=== PATIENT | male | born 1990 | race Caucasian/White ===

== ENCOUNTER 2022-01-01 08:49 | Emergency (ER) | payer SELFPAY ==
[2022-01-01 08:53] VITALS: BP 102/67; PULSE 90; RESP 17; TEMP 36.8; O2SAT 100; BMI 21.9
--- NOTE | 2022-01-01 09:11 | ED_ITS ---
HPI - General Adult General Chief complaint: Dental/Oral Stated complaint: DENTAL ISSUE Time Seen by Provider: 01/01/22 09:09 Source: patient Mode of arrival: ambulatory Limitations: no limitations History of Present Illness HPI narrative: Patient is a 31 year old assigned male at with a history of poor dentition presenting to the emergency department today with dental pain. Patient states that he got braces put on at 13 years old and never got them off. Patient states that he has gotten multiple quotes from dentists and they are all very expensive but he needs all of his teeth pulled out. Patient states that his lower right tooth has been bothering him lately. Patient denies any dizziness, lightheadedness, abdominal pain, nausea, vomiting, fever, chills, blurry vision, double vision, loss of vision, chest pain, difficulty breathing, shortness of breath, back pain, night sweats, pain with urination, increased urinary frequency, increased urinary urgency, blood in his urine or stool, syncope or a near syncopal episode, recent trauma or falls, bowel incontinence, bladder incontinence, bowel retention, bladder retention, or any other complaints at this time. Onset (ago): year(s) Location: mouth Radiation: non-radiation Severity: mild Severity scale (1-10): 2 Quality: aching and dull Pain Consistency: constant Relieving factors: none Exacerbating factors: none Associated symptoms: denies other symptoms Treatments prior to arrival: none Related Data Previous Rx's Medication Instructions Recorded penicillin V potassium 500 mg 500 mg PO BID 10 days #20 tabs 01/01/22 tablet Allergies Allergy/AdvReac Type Severity Reaction Status Date / Time No Known Allergies Allergy Unverified 10/29/19 15:54 [No Known Allergies*] Review of Systems Constitutional: Constitutional: Reports no additional constitutional complaints, Denies chills, Denies fever(s) and Denies night sweats Eyes: Eyes: Reports no additional eye complaints, Denies blurry vision, Denies change in vision, Denies diplopia, Denies eye discharge, Denies loss of vision and Denies eye pain ENT: Denies dizziness Comments: dental pain Cardiovascular: Cardiovascular: Reports no additional cardiovascular complaints, Denies chest pain, Denies lightheadedness, Denies Loss of Consciousness and Denies dyspnea Respiratory: Respiratory: Reports no additional respiratory complaints and Denies dyspnea Gastrointestinal: Gastrointestinal: Reports no additional gastrointestinal complaints, Denies abdominal pain, Denies melena, Denies hematochezia, Denies change in bowel habits and Denies change in stool character Genitourinary: Genitourinary: Reports no additional male genitourinary complaints, Denies hematuria, Denies oliguria, Denies difficulty urinating, Denies dysuria, Denies urinary frequency, Denies urinary hesitancy, Denies urinary incontinence and Denies urinary urgency Musculoskeletal: Musculoskeletal: Reports no additional musculoskeletal complaints, Denies numbness and Denies tingling Neurologic: Denies dizziness, Denies loss of vision, Denies numbness and Denies tingling Psychiatric: Psychiatric: Reports no additional psychiatric complaints Endocrine: Endocrine: Reports no additional endocrine complaints Hematologic/Lymphatic: Hematologic/Lymphatic: Reports no additional hematologic/lymphatic complaints Allergic/Immunologic: Allergic/Immunologic: Reports no additional allergic/immunologic complaints [facility] Past Medical History Attestation statement: The following information was validated with the patient. Source: old records reviewed Social History Social History Advance Directives: No Advance Directives Information Provided: No Physical Exam ED Vital Signs: Vital Signs - 24 hr 01/01/22 08:53 Temperature 98.2 F Pulse Rate 90 Respiratory Rate 17 Blood Pressure 102/67 Pulse Oximetry 100 Oxygen Delivery Method Room Air BMI result Body Mass Index 21.9 Const General: cooperative, no acute distress, alert and awake Nutritional Appearance: well nourished Orientation/consciousness: patient oriented x3 Limitations: no limitations [facility] Head: Yes normal to inspection and Yes atraumatic Ears: hearing grossly normal bilaterally and external ears normal General nose exam: Normal external nose present, no nasal discharge noted and no epistaxis Face and sinus: Yes normal facial exam, No abrasion and No laceration Mouth: Normal oral and palatal mucosa present, no drooling and no muffled voice Teeth and gingiva: poor dentition (multiple teeth with deep cavities where the braces hardware used to be) and other (remaining braces hardware present on multiple teeth) Eyes General: appearance normal, both eyes and all related structures Periorbital: periorbital findings normal Eyelids: Yes eyelids normal Conjunctivae: conjunctivae normal Pupils: Equal, round and reactive pupils present EOM: EOMs intact bilaterally Neck Neck: Yes normal visual inspection, Yes full ROM and Yes no lymphadenopathy Chest Chest palpation & inspection: normal inspection of the chest Resp Effort & Inspection: normal respiratory effort and able to speak in complete sentences Auscultation: clear to auscultation bilaterally Cardio Rate: regular rate Rhythm: regular rhythm GI Inspection: Yes normal to inspection Neuro General: patient oriented x3 and moves all extremities Cranial nerves: Yes Equal, round and reactive pupils present Cognition (Neuro): normal cognition Motor exam (neuro): 5/5 motor strength present throughout Sensory Exam: Normal double simultaneous stimulation for sensation Coordination: [id number] test normal Extrem General: Yes normal to inspection, Yes full ROM and Yes capillary refill normal Psych Appearance: grossly normal Mental Status: mental status grossly normal Affect: normal affect Attitude: cooperative Thought process: Normal thought process present Thought content: Normal thought content present Insight: Good insight present (Psych) Medical Decision Making MDM Narrative Medical decision making narrative: Patient is a 31 year old assigned male at with a history of poor dentition presenting to the emergency department today with right lower sided dental pain. Patient's physical exam showed extensive poor dentition with multiple areas of large cavities, presumably where braces hardware used to be and multiple teeth with remaining braces brackets. I explained my physical exam findings to the patient. I answered all questions asked by the patient. I stressed the importance of the patient taking his medication as prescribed. I stressed the importance of the patient following up with his primary care provider and a dentist. I stressed the importance of the patient returning to the emergency department immediately if his symptoms were to worsen or if he were to develop any dizziness, shortness of breath, difficulty breathing, chest pain, blurry vision, loss of vision, nausea, vomiting, abdominal pain, fever, chills, back pain, or any other complaints. Patient verbalized agreement and understanding with this treatment plan and discharge. Medical Records Medical records reviewed: Yes I reviewed the patient's medical records. Discharge Plan Discharge Clinical Impression: Dental abscess Patient Disposition: Home, Self-Care Additional Instructions: Follow up with your primary care provider. Return to the emergency department immediately if your symptoms worsen or if you develop any dizziness, shortness of breath, difficulty breathing, chest pain, blurry vision, loss of vision, nausea, vomiting, abdominal pain, fever, chills, back pain, or any other complaints. Call or visit any of the clinics below to establish with a dentist: [facility] [address] [place] [address] [facility] [address] [facility], [address] [address] [place] [address] [facility] [address] [place] [id number] [facility] [address] [place] [address] [place] [address] [place] [address] Prescriptions: New penicillin V potassium 500 mg tablet 500 mg PO BID 10 Days Qty: 20 0RF Referrals: Eric Aguirre MD [Primary Care Provider] - Stand Alone Forms: Work/School Release Interventions: ED Discharge Assessment Last Done: 01/01/22 09:24 Discharge Date/Time: 01/01/22 09:25 Print Language: Kuwaiti
== END 2022-01-01 09:25 | disposition home or self-care (01) ==
PROVIDERS: Emergency Provider Emergency Medicine; PCP Internal Medicine
DX: K04.7 Periapical abscess without sinus (principal); K08.89 Other specified disorders of teeth and supporting structures; K02.9 Dental caries, unspecified
CPT/HCPCS: 99282; 99283

== ENCOUNTER 2022-03-24 08:01 | Emergency (ER) | payer SELFPAY ==
[2022-03-24 08:09] VITALS: BP 128/82; PULSE 99; RESP 16; TEMP 37; O2SAT 99; BMI 22.9
[2022-03-24 08:59] VITALS: TEMP 36.9
--- NOTE | 2022-03-24 09:05 | ED_ITS ---
HPI - Dental/Oral General Chief complaint: Dental/Oral Stated complaint: possible tooth infection Time Seen by Provider: 03/24/22 08:43 Source: patient Mode of arrival: ambulatory History of Present Illness HPI Narrative: 31-year-old male presents with poor dentition and complaints of right lower tooth pain after 1 of his braces cracked the molar he has had subsequent swelling to the right lower jaw area but denies any difficulty with swallowing or breathing and denies any fevers or chills. Related Data Previous Rx's Medication Instructions Recorded penicillin V potassium 500 mg 500 mg PO BID 10 days #20 tabs 01/01/22 tablet amoxicillin 875 mg-potassium 1 tab PO Q12H 5 days #10 tabs 03/24/22 clavulanate 125 mg tablet Allergies Allergy/AdvReac Type Severity Reaction Status Date / Time No Known Allergies Allergy Verified 03/24/22 08:11 [No Known Allergies*] Review of Systems Review of Systems: Pertinent positives and negatives as stated in HPI. [facility] Past Medical History Source: nursing notes reviewed Social History Social History Advance Directives: No Advance Directives Information Provided: No Physical Exam Vital Signs: Vital Signs: Last Vital Signs Temp 98.5 F 03/24/22 08:59 Pulse 99 03/24/22 08:09 Resp 16 03/24/22 08:09 BP 128/82 03/24/22 08:09 Pulse Ox 99 03/24/22 08:09 O2 Del Method 03/24/22 08:09 BMI result Body Mass Index 22.9 VITAL SIGNS: Reviewed. GENERAL: Well developed, well nourished, in no acute distress. HEAD: Normocephalic/atraumatic EYES: PERRLA, EOMI OROPHARYNX: Multiple dental caries with cracked teeth, no appreciable gingival swelling but swelling noted along the right lower jaw without fluctuance LUNGS: Normal breath sounds. No adventitious sounds or accessory muscle use. SpO2<99> CARDIOVASCULAR: Regular rate and rhythm without noted murmurs ABDOMEN: Soft, non-tender, non-distended with bowel sounds. NEUROLOGIC: Alert and oriented x 4. Strength and sensation to light touch were grossly intact x 4. Medical Decision Making Medical Decision Making MDM Narrative: Dental infection, combination analgesics and initial antibiotics provided. Differential Diagnosis Differential Diagnoses: The differential diagnosis associated with the presentation includes Please see the discussion above External Record Review External record reviewed: Outpatient record and Prior outpatient labs Discharge Plan Discharge Clinical Impression: Toothache, Dental abscess, Dental caries Patient Disposition: Home, Self-Care Instructions: Dental Abscess (ED), Toothache (ED) Additional Instructions: 1. Complete the entire course of antibiotics as ordered. 2. Recommend [id number] Tylenol/ibuprofen as needed for pain control. May additionally use ice to unexposed skin for 5-10 minutes, 3 to 4 times a day. 3. You should follow-up with a dentist at your earliest convenience. Return to the ER for any worsening symptoms. Prescriptions: New amoxicillin-pot clavulanate 875-125 mg tablet 1 tab PO Q12H 5 Days Qty: 10 0RF No Action penicillin V potassium 500 mg tablet 500 mg PO BID 10 Days Qty: 20 0RF
[2022-03-24] MEDS: Ibuprofen 400 MG TABLET PO (09:18)
[2022-03-24] MEDS: Amoxicillin/Potassium Clav 875 MG TABLET PO (09:18)
== END 2022-03-24 09:23 | disposition home or self-care (01) ==
PROVIDERS: Emergency Provider Student in an Organized Health Care Education/Training Program
DX: K04.7 Periapical abscess without sinus (principal); K02.9 Dental caries, unspecified; K08.89 Other specified disorders of teeth and supporting structures
CPT/HCPCS: 99283; 99284

== ENCOUNTER 2022-06-12 09:40 | Emergency (ER) | payer SELFPAY ==
[2022-06-12 09:53] VITALS: BP 138/78; PULSE 80; RESP 18; TEMP 37.2; O2SAT 100; BMI 28.3
--- NOTE | 2022-06-12 11:34 | ED.DENTAL ---
HPI - Dental/Oral General Chief complaint: Dental/Oral Stated complaint: Dental pain Time Seen by Provider: 06/12/22 11:19 Source: patient Mode of arrival: ambulatory History of Present Illness HPI Narrative: 31-year-old male with no significant past medical history presenting to the ED complaining lower dental pain & diffuse dental caries x years. Patient admits he had braces placed when he was 12 years old, however left his house and has never had them removed. Admits tries to pick off the braces at home however teeth or crumbling. Denies fever, chills, drainage from mouth, oral swelling, difficulty swelling, ear pain MD Complaint: tooth pain Related Data Previous Rx's Medication Instructions Recorded penicillin V potassium 500 mg 500 mg PO BID 10 days #20 tabs 01/01/22 tablet amoxicillin 875 mg-potassium 1 tab PO Q12H 5 days #10 tabs 03/24/22 clavulanate 125 mg tablet amoxicillin 875 mg-potassium 1 tab PO BID 7 days #14 tabs 06/12/22 clavulanate 125 mg tablet Allergies Allergy/AdvReac Type Severity Reaction Status Date / Time No Known Allergies Allergy Verified 03/24/22 08:11 [No Known Allergies*] Review of Systems Review of Systems: Constitutional: No Fever, No Chills ENT/Mouth: +dental pain, No Ear Pain, No Nasal Congestion, No Sinus Pain, No Hoarseness, No sore throat, No Rhinorrhea, No Swallowing Difficulty Cardiovascular: No Chest Pain, No SOB Respiratory: No Cough Gastrointestinal: No Nausea, No Vomiting, No Abdominal pain Genitourinary: No Dysuria, No Urinary Frequency, No Flank Pain Musculoskeletal: No joint pain, No Myalgias, No Joint Swelling Skin: No Skin Lesions, No rash Neuro: No Weakness, No Numbness, No Paresthesias Yes all other systems are reviewed and are negative Constitutional: Constitutional: Reports as per [facility] Past Medical History Attestation statement: The following information was validated with the patient. Social History Social History Advance Directives: No Advance Directives Information Provided: No Physical Exam Vital Signs: Vital Signs: Last Vital Signs Temp 98.9 F 06/12/22 09:53 Pulse 80 06/12/22 09:53 Resp 18 06/12/22 09:53 BP 138/78 06/12/22 09:53 Pulse Ox 100 06/12/22 09:53 O2 Del Method Room Air 06/12/22 09:53 BMI result Body Mass Index 28.3 Const: General: cooperative and no acute distress Orientation/consciousness: patient oriented x3 Limitations: no limitations HEENT: Other: + diffuse dental caries/rotting teeth. Upper and lower braces intact. No focal dental/gingival fluctuance/induration or cellulitis Head: Yes normal to inspection and Yes atraumatic Ears: hearing grossly normal bilaterally, external ears normal, TM's normal bilaterally and mastoids normal General nose exam: Normal external nose present Face and sinus: Yes normal facial exam Mouth: no drooling Teeth and gingiva: abnormal tooth and associated gingiva and poor dentition Eyes: General: appearance normal, both eyes and all related structures EOM: EOMs intact bilaterally Neck: Neck: Yes normal visual inspection, Yes no meningeal signs, Yes supple, No anterior neck swelling and No torticollis Resp: Effort & Inspection: normal respiratory effort and no respiratory distress Cardio: Rate: regular rate Skin: Rashes: no rashes Wounds: no wounds Neuro: General: patient oriented x3, tone normal and no meningeal signs Gait exam (Neuro): Normal gait present Extrem: General: Yes normal to inspection Medical Decision Making Medical Decision Making [facility] Narrative: 31-year-old male with no significant past medical history presenting to the ED complaining lower dental pain & diffuse dental caries x years. On exam vital signs stable, NAD, nontoxic appearing, physical exam as noted above. Diffuse dental caries/rotting teeth with intact braces. No focal cellulitis, no appreciable fluctuance/induration. Discussed with patient at length the importance of seeing a dentist and having braces removed Plan: P.o. antibiotics, dentistry follow-up Please refer to course for remaining clinical decision making, interpretation of labs/imaging results, and discussions with consultants and/or family members. Differential Diagnosis Differential Diagnoses: The differential diagnosis associated with the presentation includes As above Lab Data [facility] Lab Attestation statement: I reviewed the patient's lab results. Radiology Impression Discussion of test interpretation with radiology: I have reviewed the radiologist's reading. External Record Review External record reviewed: Inpatient record, Office record, Outpatient record, Prior outpatient labs, Prior outpatient radiology, Primary care record and Outside ED record Discharge Plan Discharge Clinical Impression: Dental caries Patient Disposition: Home, Self-Care Instructions: Tooth Extraction (DC) Additional Instructions: Augmentin is an antibiotic please take as prescribed YOU NEED TO SEE A DENTIST If he develop oral swelling, drainage, difficulty swallowing, fever or chills return to the ED Prescriptions: New amoxicillin-pot clavulanate 875-125 mg tablet 1 tab PO BID 7 Days Qty: 14 0RF No Action amoxicillin-pot clavulanate 875-125 mg tablet 1 tab PO Q12H 5 Days Qty: 10 0RF penicillin V potassium 500 mg tablet 500 mg PO BID 10 Days Qty: 20 0RF Referrals: Neil Vila [Dentist] - Devin Johnson DMD [Dentist] - Nacho Gonzalez DMD [Dentist] - Susana Coy DMD [Dentist] - Interventions: ED Discharge Assessment Last Done: 06/12/22 12:09 Discharge Date/Time: 06/12/22 12:10
== END 2022-06-12 12:10 | disposition home or self-care (01) ==
PROVIDERS: Emergency Provider Emergency Medicine
DX: K02.9 Dental caries, unspecified (principal)
CPT/HCPCS: 99282; 99283

== ENCOUNTER 2022-12-04 06:59 | Emergency (ER) | payer MEDICAID, SELFPAY ==
[2022-12-04 07:33] VITALS: BP 118/76; PULSE 71; RESP 16; TEMP 36.6; O2SAT 98; BMI 25.8
--- NOTE | 2022-12-04 10:28 | ED_ITS ---
HPI - Dental/Oral General Chief complaint: Dental/Oral Stated complaint: Dental pain Time Seen by Provider: 12/04/22 10:23 Source: patient Mode of arrival: ambulatory Limitations: no limitations History of Present Illness HPI Narrative: Patient 32-year-old male with history of dental caries presenting to the emergency department complaint of right lower jaw pain and swelling for the past 2 days. Denies any drainage or discharge from the area. Reports fever to 103 last night. Denies any difficulty managing secretions or breathing. States has an appointment with dentist next Saturday. MD Complaint: tooth pain Teeth map: 2 1. Pain, swelling Onset (ago): day(s) Duration: constant Severity: severe Relieving factors: nothing Exacerbating factors: chewing Context: history of dental caries and poor dental care Associated symptoms: fever and gum swelling Treatment prior to arrival: none Related Data Previous Rx's Medication Instructions Recorded penicillin V potassium 500 mg 500 mg PO BID 10 days #20 tabs 01/01/22 tablet amoxicillin 875 mg-potassium 1 tab PO Q12H 5 days #10 tabs 03/24/22 clavulanate 125 mg tablet amoxicillin 875 mg-potassium 1 tab PO BID 7 days #14 tabs 06/12/22 clavulanate 125 mg tablet amoxicillin 875 mg-potassium 1 tab PO BID #14 tabs 12/04/22 clavulanate 125 mg tablet Allergies Allergy/AdvReac Type Severity Reaction Status Date / Time No Known Allergies Allergy Verified 03/24/22 08:11 [No Known Allergies*] Review of Systems 2 Review of Systems: As per HPI. Yes all other systems are reviewed and are negative Constitutional: Constitutional: Reports as per HPI [facility] Social History Social History Advance Directives: No Advance Directives Information Provided: No Physical Exam 2 Vital Signs: Vital Signs: Last Vital Signs Temp 97.9 F 12/04/22 07:33 Pulse 71 12/04/22 07:33 Resp 16 12/04/22 07:33 BP 118/76 12/04/22 07:33 Pulse Ox 98 12/04/22 07:33 O2 Del Method Room Air 12/04/22 07:33 BMI result Body Mass Index 25.8 Vital signs have been reviewed and appear to be correct. Blood pressure normal. Heart rate normal. Respiratory rate normal. Temperature normal. Oxygen saturation normal. Const: General: cooperative, healthy appearing and no acute distress O rientation/consciousness: oriented to person, oriented to place, oriented to time and patient oriented x3 Limitations: no limitations HEENT: Head: Yes normocephalic and Yes atraumatic Ears: external ears normal General nose exam: Normal external nose present Face and sinus: Yes face symmetric Mouth: oropharynx normal and moist mucous membranes Teeth and gingiva: abnormal tooth and associated gingiva lower right and poor dentition Teeth image: 1. teeth cracked, surrounding gingiva erythematous with mild edema, no fluctuance Throat: Yes posterior oropharynx normal, Yes uvula midline and No uvular edema Eyes: Pupils: Equal, round and reactive pupils present Neck: Neck: Yes normal visual inspection, Yes no lymphadenopathy and Yes supple Resp: Effort & Inspection: normal respiratory effort, able to speak in complete sentences, no respiratory distress and no use of accessory muscles A uscultation: clear to auscultation bilaterally Cardio: Rate: regular rate Rhythm: regular rhythm Heart sounds: S1 normal heart sound present and S2 normal heart sound present Skin: General skin exam: elasticity normal and turgor normal Neuro: General: oriented to person, oriented to place, oriented to time, patient oriented x3, moves all extremities, no focal motor deficits and CN's II- XI intact bilaterally Cranial nerves: Yes Equal, round and reactive pupils present Cognition (Neuro): normal cognition Extrem: General: Yes full ROM, Yes no pedal edema and Yes no calf tenderness Psych: Mental Status: mental status grossly normal Affect: normal affect Thought process: Normal thought process present Medical Decision Making Medical Decision Making MDM Narrative: Patient 32-year-old male with history of dental caries presenting to the emergency department complaint of right lower jaw pain and swelling for the past 2 days. On exam patient is awake, A+Ox3, VS WNL, afebrile, normal neurological exam without focal deficits, physical exam findings above. Given reported symptoms and physical exam findings, initial differential includes dental infection, dental abscess, tooth ache. Do not suspect Oliver's angina. Will treat with course of Augmentin and patient instructed to treat pain with Tylenol ibuprofen, follow-up with dentist. Return precautions discussed at bedside. Patient verbalized understanding of and agreement with plan. Differential Diagnosis Differential Diagnoses: The differential diagnosis associated with the presentation includes As per MDM. External Record Review External record reviewed: Inpatient record, Office record and Outpatient record Prescription Management I considered prescription management with: Antibiotic Discharge Plan Discharge Clinical Impression: Toothache, Dental caries, Dental abscess Patient Disposition: Home, Self-Care Instructions: Dental Abscess (ED), Toothache (ED) Additional Instructions: Please complete the full course of antibiotics as prescribed and follow up with your dentist. You can use 650mg Tylenol or 600mg ibuprofen as needed for pain. If necessary, you can alternate these medications every 3 hours. For example, at noon take Tylenol, then at 3:00 p.m. take ibuprofen, then at 6:00 p.m. take Tylenol, etc.. Return to the emergency department for any worsening symptoms. Prescriptions: New amoxicillin-pot clavulanate 875-125 mg tablet 1 tab PO BID Qty: 14 0RF No Action amoxicillin-pot clavulanate 875-125 mg tablet 1 tab PO Q12H 5 Days Qty: 10 0RF penicillin V potassium 500 mg tablet 500 mg PO BID 10 Days Qty: 20 0RF amoxicillin-pot clavulanate 875-125 mg tablet 1 tab PO BID 7 Days Qty: 14 0RF
== END 2022-12-04 10:47 | disposition home or self-care (01) ==
PROVIDERS: Emergency Provider Emergency Medicine
DX: K04.7 Periapical abscess without sinus (principal); K02.9 Dental caries, unspecified; K08.89 Other specified disorders of teeth and supporting structures
CPT/HCPCS: 99282; 99283

== ENCOUNTER 2023-03-12 07:09 | Emergency (ER) | payer SELFPAY ==
[2023-03-12 07:16] VITALS: BP 116/59; PULSE 71; RESP 17; TEMP 36.6; O2SAT 98; BMI 25.8
--- NOTE | 2023-03-12 07:33 | ED.DENTAL ---
HPI - Dental/Oral General Chief complaint: Dental/Oral Stated complaint: tooth infection Time Seen by Provider: 03/12/23 07:23 Source: patient Mode of arrival: ambulatory Limitations: no limitations History of Present Illness HPI Narrative: 32-year-old male who presents emergency department for evaluation of dental pain/infection x2 weeks. The patient states that he has significant dental caries and gets frequent infections. He states that he is having pain in his right lower jaw in an area where he has had infections in the past. He states that his jaw feels swollen in his painful. The patient denied fever, chills or fatigue. Related Data Previous Rx's Medication Instructions Recorded penicillin V potassium 500 mg 500 mg PO BID 10 days #20 tabs 01/01/22 tablet amoxicillin 875 mg-potassium 1 tab PO Q12H 5 days #10 tabs 03/24/22 clavulanate 125 mg tablet amoxicillin 875 mg-potassium 1 tab PO BID 7 days #14 tabs 06/12/22 clavulanate 125 mg tablet amoxicillin 875 mg-potassium 1 tab PO BID #14 tabs 12/04/22 clavulanate 125 mg tablet amoxicillin 875 mg-potassium 1 tab PO Q12H 10 days #20 tabs 03/12/23 clavulanate 125 mg tablet Allergies Allergy/AdvReac Type Severity Reaction Status Date / Time No Known Allergies Allergy Verified 03/12/23 07:15 [No Known Allergies*] Review of Systems Review of Systems: Yes all other systems are reviewed and are negative [facility] Past Medical History [facility] Narrative: Past medical history: Patient states that he has a bleeding stomach ulcer in the past. Social history: Does smoke cigarettes. Denies alcohol use. He denies drug use. Social History Social History Advance Directives: No Advance Directives Information Provided: Yes Physical Exam Vital Signs: Vital Signs: Last Vital Signs Temp 98 F 03/12/23 07:16 Pulse 71 03/12/23 07:16 Resp 17 03/12/23 07:16 BP 116/59 L 03/12/23 07:16 Pulse Ox 98 03/12/23 07:16 O2 Del Method Room Air 03/12/23 07:16 BMI result Body Mass Index 25.8 Vital signs were normal Exam: General: Awake, alert, pleasant, cooperative no distress Mouth: Patient has significant dental caries especially in his right lower jaw, there is no gingival swelling or significant swelling of his face. Neck: Supple, no adenopathy Medical Decision Making Medical Decision Making MDM Narrative: 32-year-old male with a history of stomach ulcers who presents emergency department for evaluation of right lower jaw dental pain. Patient has significant dental caries and states he has had infections in this area in the past. Physical examination did reveal dental caries with no obvious dental abscess. Differential diagnosis includes was not limited to dental caries, dental infection, dental abscess Patient's examination is concerning for dental infection secondary to dental caries. Patient has been treated with Augmentin in the past therefore he was given a prescription for Augmentin 875/1251 pill b.i.d. for 10 days. He was advised to continue taking Tylenol for pain. He was also advised to gargle with a 50% solution of hydrogen peroxide and water twice a day. Was given printed and verbal instructions and discharged home. Prescription Management I considered prescription management with: Antibiotic Discharge Plan Discharge Clinical Impression: Dental caries, Toothache Patient Disposition: Home, Self-Care Additional Instructions: Your symptoms are consistent with an infection of your teeth in your right lower jaw. Take Augmentin 875/125, 1 pill every 12 hours day for 10 days. Makes a solution of 3% hydrogen peroxide and water (half hydrogen peroxide and half water). Put a small amount of this in your mouth and gargle for 30 seconds twice a day. Spit out the water and hydrogen peroxide. Then gargle with warm water 2 or 3 times in spit this out as well. This will reduce the amount of bacteria on your gums and hopefully will help prevent dental infections. Take Tylenol (acetaminophen) 500 mg pills, 2 pills every 6 hours as needed for pain or fever. Follow-up with your doctor in 2 days. Please return to the emergency department if your symptoms get worse or if you develop any symptoms that are concerning to you. Prescriptions: New amoxicillin-pot clavulanate 875-125 mg tablet 1 tab PO Q12H 10 Days Qty: 20 0RF No Action amoxicillin-pot clavulanate 875-125 mg tablet 1 tab PO Q12H 5 Days Qty: 10 0RF penicillin V potassium 500 mg tablet 500 mg PO BID 10 Days Qty: 20 0RF amoxicillin-pot clavulanate 875-125 mg tablet 1 tab PO BID Qty: 14 0RF amoxicillin-pot clavulanate 875-125 mg tablet 1 tab PO BID 7 Days Qty: 14 0RF Interventions: ED Discharge Assessment Last Done: 03/12/23 08:42 Discharge Date/Time: 03/12/23 08:43
== END 2023-03-12 08:43 | disposition home or self-care (01) ==
PROVIDERS: Emergency Provider Emergency Medicine Emergency Medical Services
DX: K02.9 Dental caries, unspecified (principal)
CPT/HCPCS: 99282; 99283

== ENCOUNTER 2023-09-25 13:45 | Emergency (ER) | payer MEDICAID, SELFPAY ==
--- NOTE | 2023-09-25 13:49 | ED.GENADULT ---
HPI - General Adult General Chief complaint: Extremity Injury, Upper Stated complaint: nail through finger Time Seen by Provider: 09/25/23 13:56 Source: patient Mode of arrival: ambulatory Limitations: no limitations History of Present Illness ED Provider: Chung RANGEL HPI narrative: 33 yo M otherwise healthy, accidentally punctured middle finger of the left hand with a nail gun 2 hours at work, he states he attempted to removed the nail but was not successful. not updated on tetanus. Denies fevers, chills, numbness, tingling Related Data Previous Rx's ?Medication ?Instructions ?Recorded penicillin V potassium 500 mg 500 mg PO BID 10 days #20 tabs 01/01/22 tablet amoxicillin 875 mg-potassium 1 tab PO Q12H 5 days #10 tabs 03/24/22 clavulanate 125 mg tablet amoxicillin 875 mg-potassium 1 tab PO BID 7 days #14 tabs 06/12/22 clavulanate 125 mg tablet amoxicillin 875 mg-potassium 1 tab PO BID #14 tabs 12/04/22 clavulanate 125 mg tablet amoxicillin 875 mg-potassium 1 tab PO Q12H 10 days #20 tabs 03/12/23 clavulanate 125 mg tablet amoxicillin 875 mg-potassium 1 tab PO BID 10 days #20 tabs 09/25/23 clavulanate 125 mg tablet Allergies Allergy/AdvReac Type Severity Reaction Status Date / Time No Known Allergies Allergy Verified 09/25/23 13:53 [No Known Allergies*] Review of Systems Review of Systems: Yes all other systems are reviewed and are negative PMF[facility] Past Medical History Attestation statement: The following information was validated with the patient. Source: old records reviewed and nursing notes reviewed Physical Exam ED Vital Signs: Vital Signs - 24 hr 09/25/23 13:50 Temperature 98.6 F Pulse Rate 86 Respiratory Rate 16 Blood Pressure 123/81 Pulse Oximetry 99 Oxygen Delivery Method Room Air BMI result Body Mass Index 24.6 vss Appearance: Alert.? Oriented X3.? No acute distress.? Head: Normocephalic, atraumatic, no step-offs or deformities Eyes: Pupils equal, round and reactive to light.? Neck: Normal inspection.? Neck supple.? CVS: Normal heart rate and rhythm.? Pulses normal.? Respiratory: No respiratory distress.? Breath sounds normal.? Abdomen: Soft and nontender.? Skin: Skin warm and dry.? Normal skin color.? Normal skin turgor.? Nail in the 3rd finger of the left hand through and through. Extremities: No lower extremity edema.? No calf ttp. 5/5 strength to bilateral upper and lower extremities Neuro: Oriented X 3.? No motor deficit.? No sensory deficit. CN 2-12 intact Course Course Course Narrative: This is an RME done by JUAN CARLOS Duran: Additional HPI, ROS, PE not included below will be deferred to primary provider. 33 yoa M otherwise healthy, accidentally punctured middle finger of the left hand with a nail gun 2 hours at work, he states he attempted to removed the nail but was not successful. not updated on tetanus. Appearance: Alert.? Oriented X3.? No acute cardiopulmonary distress distress.? Head: Normocephalic, atraumatic, no step-offs or deformities Neck: Normal inspection.? Neck supple.? CVS: Pulses normal.? Respiratory: No respiratory distress.? Skin: ? Normal skin color. Extremities: 5/5 strength to bilateral upper and lower extremities. Nail in the 3rd finger of the left hand through and through. Neuro: Oriented X 3.? No motor deficit.? No sensory deficit. Reevaluation(s) Reevaluation #1: Patient given tetanus shot. Will be sent on Augmentin. Educated patient on diagnosis and treatment plan, answered all question, patient verbalizes understanding. At this time patient will be discharged home, advised to return with new or worsening symptoms. Educated on worrisome signs and symptoms and when to return. At this time I feel comfortable discharge home. Time: 14:04 Medical Decision Making Medical Decision Making [facility] Narrative: 33 year old male presents w/ nail to L middle finger PE Nail in the 3rd finger of the left hand through and through. hx and pe concerning for puncture wound possible fx. Unlikley nv compromise, threat to lori. Patient doesn't want an xray states no change in plan Plan- removal of nail in triage. And irrigation. Boostrix as patient is not up to date Differential Diagnosis Differential Diagnoses: The differential diagnosis associated with the presentation includes hx and pe concerning for puncture wound possible fx. Unlikley nv compromise, threat to lori. Admission/Observation Consideration of admission/observation: Escalation of care including admission/observation considered Unlikley Discharge Plan Discharge Clinical Impression: Foreign body (FB) in soft tissue Patient Disposition: Home, Self-Care Instructions: Soft Tissue Foreign Body (ED) Additional Instructions: Take your medications as prescribed. If you were prescribed antibiotics today, it is important that you take your medication to their entirety, do not skip any doses, do not finish them early. Follow-up with your primary care provider this week. Return to the emergency department with new or worsening symptoms. Such as fevers, chills, chest pain, shortness of breath, nausea, vomiting, dizziness, headache, vision changes, lethargy In case of emergency call 911 Prescriptions: New amoxicillin-pot clavulanate 875-125 mg tablet 1 tab PO BID 10 Days Qty: 20 0RF No Action amoxicillin-pot clavulanate 875-125 mg tablet 1 tab PO Q12H 5 Days Qty: 10 0RF penicillin V potassium 500 mg tablet 500 mg PO BID 10 Days Qty: 20 0RF amoxicillin-pot clavulanate 875-125 mg tablet 1 tab PO BID Qty: 14 0RF amoxicillin-pot clavulanate 875-125 mg tablet 1 tab PO Q12H 10 Days Qty: 20 0RF amoxicillin-pot clavulanate 875-125 mg tablet 1 tab PO BID 7 Days Qty: 14 0RF Referrals: Physician,Unknown J [Primary Care Provider] - 1 week Print Language: Russian
[2023-09-25 13:50] VITALS: BP 123/81; PULSE 86; RESP 16; TEMP 37; O2SAT 99; BMI 24.6
[2023-09-25] MEDS: Diphth,Pertus(ACell),Tet Adult 0.5 ML SYRINGE IM (14:04)
[2023-09-25 14:09] VITALS: BP 123/81; PULSE 86; RESP 16; TEMP 37; O2SAT 99
== END 2023-09-25 14:10 | disposition home or self-care (01) ==
PROVIDERS: Emergency Provider Emergency Medicine
DX: S61.243A Puncture wound with foreign body of left middle finger without damage to nail, initial encounter (principal); M79.642 Pain in left hand; X58.XXXA Exposure to other specified factors, initial encounter; Y93.89 Activity, other specified; Y92.89 Other specified places as the place of occurrence of the external cause; Y99.0 Civilian activity done for income or pay; Z79.899 Other long term (current) drug therapy; Z23 Encounter for immunization
CPT/HCPCS: 90471; 90715; 99282; 99284

== ENCOUNTER 2025-01-10 07:06 | Emergency (ER) | payer OTHER, SELFPAY ==
[2025-01-10 07:11] VITALS: BP 131/67; PULSE 74; RESP 16; TEMP 36.1; O2SAT 97; BMI 28.5
[2025-01-10 07:44] LABS: MANUAL DIFF FLAG NO
--- OUTSIDE RECORDS SUMMARY | 2025-01-10 07:45 | XMS_ITS | Clinical Summary ---
Author Organization [facility] Address [address] [place] [id number] Phone Care Team Providers Care Bolt Maker Name Role Phone Hector Irby Primary Care Provider [phone] Immunizations Immunization Administration Dates Next Due DTP 07/11/1994,,01/10/1990,1989,1989 Hep B, ped/adol 01/24/1999,08/10/1998,07/05/1998 Hib (PRP-T) 11/10/1990 IPV 07/11/1994,,1989,1989 MMR 07/11/1994,11/10/1990 Td (adult) (MBL), 2 Lf tetan us toxoid, PF, adsorbed 12/01/2006,10/21/2000 Tdap 09/25/2005 Family History Relation Name Status Comments Mother Mother: ??? Social History Tobacco Use Types Packs/Day Years Used Date Smoking Tobacco: Never Assessed Sex and Gender Information Value Date Recorded Sex Assigned at Not on file Legal Sex Male 4:24 PM EDT Gender Identity Not on file Sexual Orientation Not on file Plan of Treatment Health Maintenance Due Date Last Done Comments Varicella Vaccines (1 of 2 - 13+ 2-dose series) 2002 HPV Vaccines (1 - 3-dose SCDM series) 2016 DTaP,Tdap,and Td Vaccines (8 - Td or Tdap) 12/01/2016 12/01/2006, 09/25/2005, 10/21/2000, Additional history exists Influenza Vaccines (#1) 2024 COVID-19 Vaccine (2024- season) 2024 HIB Vaccines Completed 11/10/1990 IPV Vaccines Completed 07/11/1994, 12/14, 1989, Additional history exists MMR Vaccines Completed 07/11/1994, 11/10/1990 Hepatitis B Vaccines Completed 01/24/1999, 08/10/1998, 07/05/1998 Hepatitis A Vaccines Aged Out No long er eligible based on patient's age to complete this topic Men B Vaccine Aged Out No longer elig ible based on patient's age to complete this topic Meningococcal Vaccine Aged Out No danyelle hetal eligible based on patient's age to complete this topic Pneumococcal Vaccine Aged Out No long er eligible based on patient's age to complete this topic Care Teams Bolt Maker Relationship Specialty Start Date End Date Hector Irby [address] [place] [address] PCP - General 09/21/16
--- OUTSIDE RECORDS SUMMARY | 2025-01-10 07:45 | XMS_ITS | Encounter Summary ---
Author Organization [facility] Address [address] [place] [id number] Phone Care Team Providers Care Back Roller Name Role Phone Hector Irby Primary Care Provider [phone] Encounter Details Date Type Department Care Team (Late st Contact Info) Description 05/02/2009 Documentation EM Family Medicine [address] [place] [address] Family Medicine, Physician [address] [place], [place] [id number] Social History Tobacco Use Types Packs/Day Years Used Date Smoking Tobacco: Never Assessed Sex and Gender Information Value Date Recorded Sex Assigned at Not on file Legal Sex Male 4:24 PM EDT Gender Identity Not on file Sexual Orientation Not on file documented as of this encounter Plan of Treatment Not on file documented as of this encounter Visit Diagnoses Not on filedocumented in this encounter Care Teams Back Roller Relationship Specialty Start Date End Date Hector Irby [address] [place] [address] PCP - General 09/21/16 documented as of this encounter
[2025-01-10 08:01] LABS: Anion Gap 11 (12-20); Blood Urea Nitrogen 17 mg/dL (9-16); Calcium 9.5 mg/dL (8.4-10.2); Carbon Dioxide 26 mmol/L (22-29); Chloride 108 mmol/L (96-108); Creatinine Clr Calc Pharmacy 116.4; Estimated Glomerular Filt Rate > 60; Hematocrit 47.1 % (42.0-52.0); Hemoglobin 16.1 g/dl (14.0-18.0); Imm Gran Abs Auto 0.05 X10*3/uL (0.00-0.03); Imm Gran Pct Auto 0.4 % (0.0-0.4); Lymphocytes Absolute Auto 2.5 X10*3/uL (1.2-4.9); Mean Corpuscular HGB Conc 34.2 g/dl (31.0-36.0); Mean Corpuscular Hemoglobin 28.7 pg (27.0-33.0); Mean Corpuscular Volume 84.0 fL (80.0-98.0); NRBC Abs Auto 0.000 X10*3/uL (0.0-0.012); NRBC Pct Auto 0.0 /100WBC (0.0-0.2); Platelet Count 305 X10*3/uL (160-400); Potassium 5.0 mmol/L (3.3-5.1); Red Blood Count 5.61 X10*6/uL (4.60-5.80); Sodium 140 mmol/L (135-145); White Blood Count 12.4 X10*3/uL (4.8-10.8)
--- NOTE | 2025-01-10 08:14 | ED_ITS ---
HPI - Dental/Oral General Chief complaint: Dental/Oral Stated complaint: Dental Pain Time Seen by Provider: 01/10/25 07:47 Source: patient Mode of arrival: ambulatory Limitations: no limitations History of Present Illness ED Provider: JUAN CARLOS Prado HPI Narrative: Chief Complaint: ?My tooth has been getting more painful since morning.? History of Present Illness: The patient presents to the ED for progressive left-jaw swelling and pain & tooth pain that began on morning. Initially described as mildly sore and swollen, the area has gradually worsened with increasing tightness and discomfort. The patient notes localized numbness over the affected region. Pain is centered over a cracked tooth; the patient reports multiple broken teeth with retained orthodontic brackets from incomplete braces removal many years ago. Swelling of the jaw has occurred intermittently in the past. No known allergies to antibiotics. Denies alcohol or drug use; quit smoking approximately one year ago. The patient ?felt a bit sick? this morning but reports no other specific systemic complaints.Denies CP, SOB, n/v/abd pain, fevers, chills, changes in voice Related Data Previous Rx's ?Medication ?Instructions ?Recorded penicillin V potassium 500 mg 500 mg PO BID 10 days #2 0 tabs 01/01/22 tablet amoxicillin 875 mg-potassium 1 tab PO Q12H 5 days #10 tabs 03/24/22 clavulanate 125 mg tablet amoxicillin 875 mg-potassium 1 tab PO BID 7 days #14 t abs 06/12/22 clavulanate 125 mg tablet amoxicillin 875 mg-potassium 1 tab PO BID #14 tabs clavulanate 125 mg tablet amoxicillin 875 mg-potassium 1 tab PO Q12H 10 days #20 tabs 03/12/23 clavulanate 125 mg tablet amoxicillin 875 mg-potassium 1 tab PO BID 10 days #20 tabs 09/25/23 clavulanate 125 mg tablet amoxicillin 875 mg-potassium 1 tab PO BID 7 days #14 t abs 01/10/25 clavulanate 125 mg tablet prednisone 20 mg tablet 40 mg (2 x 20 mg) PO DAILY 5 days 01/10/25 #10 tabs Allergies Allergy/AdvReac Type Severity Reaction Status Date / Time No Known Allergies (No Known Allergy Verified 01/10/25 07:12 Allergies*) Review of Systems 2 Review of Systems: Yes all other systems are reviewed and are negative [facility] Past Medical History Attestation statement: The following information was validated with the patient. Source: old records reviewed and nursing notes reviewed Social History Social History Advance Directives: No Advance Directives Information Provided: No Physical Exam 2 Exam: Exam: Physical Exam: * General: Comfortable, speaking in full sentences, no acute distress. * HEENT: Mild swelling over left jaw. Oral cavity notable for multiple broken teeth with old orthodontic brackets. Tooth outlines below appears to be cracked w/ surronding erythema and? early abscess no flucctuance. Uvula midline; airway patent; patient able to control secretions. * Respiratory: Lungs clear to auscultation; normal respiratory effort. * CV: RRR * Neuro: 2-12 CN intact. A&O X 4 Vital Signs: Vital Signs: Last Vital Signs Temp 97.0 F 01/10/25 07:11 Pulse 74 01/10/25 07:11 Resp 16 01/10/25 07:11 BP 131/67 01/10/25 07:11 Pulse Ox 97 01/10/25 07:11 O2 Del Method Room Air 01/10/25 07:11 BMI result Body Mass Index 28.5 vss HEENT: Teeth image: 1. Cracked tooth however poor dentition througout Course Reevaluation(s) Reevaluation #1: CBC with leukocytosis 12.4 no left shift. Chemistry appears to be around baseline. Patient well-appearing I did consider a CT maxillofacial bones with contrast however abscess appear small will try oral antibiotics advised him to return with new or worsening symptoms I did give him information on how to obtain a dentist. Educated patient on diagnosis and treatment plan, answered all question, patient verbalizes understanding. At this time patient will be discharged home, advised to return with new or worsening symptoms. Educated on worrisome signs and symptoms and when to return. At this time I feel comfortable discharge home. Time: 08:20 Medical Decision Making Medical Decision Making MDM Narrative: Patient with focal left-mandibular swelling and pain likely secondary to odontogenic infection stemming from a cracked tooth. Airway currently stable. Discussed signs of progression and need for prompt return if symptoms worsen. Problem #1: Suspected odontogenic infection / dental abscess Assessment: Worsening left-jaw swelling and pain localized to cracked tooth; physical exam consistent with early dental infection without airway compromise. Plan: * Start amoxicillin-clavulanic acid; instructed to take with food to minimize gastrointestinal upset. * Steroids prescribed to reduce inflammation. * Return immediately for increasing swelling, difficulty breathing, inability to swallow, inability to eat or drink, fever, or any airway compromise. Problem #2: Poor dentition / multiple fractured teeth Assessment: Multiple broken teeth with retained brackets from previous orthodontic treatment contributing to recurrent inflammation and potential infection source. Plan: * Advised urgent follow-up with dentist; provided contact information for local dental services. Differential Diagnosis Differential Diagnoses: The differential diagnosis associated with the presentation includes * Odontogenic infection / dental abscess (most likely): Localized swelling, pain, and cracked tooth are classic for dental abscess or infection originating from the tooth. * Cellulitis of the face/jaw: Progressive swelling and pain could represent soft tissue infection extending beyond the tooth. * Oliver's angina (deep neck space infection): Less likely given stable airway and ability to control secretions. Normal hard and soft palate on exam * Sialadenitis (salivary gland infection): Jaw swelling and pain may be due to infection of the salivary glands, though findings are more consistent with dental origin. * Osteomyelitis of the jaw: Chronic dental disease and recurrent swelling raise concern for underlying bone infection, though acute presentation favors soft tissue involvement. * Non-infectious causes (trauma, neoplasm): Less likely based on history and exam, but considered in the differential for jaw swelling and pain. Admission/Observation Consideration of admission/observation: Escalation of care including admission/observation considered (No indication ) Lab Data MDM Lab Attestation statement: I reviewed the patient's lab results. 01/10/25 07:37 01/10/25 07:37 Labs: Lab Results 01/10/25 Range/Units 07:37 WBC 12.4 H (4.8-10.8) X10*3/uL RBC 5.61 (4.60-5.80) X10*6/uL Hgb 16.1 (14.0-18.0) g/dl Hct 47.1 (42.0-52.0) % MCV 84.0 (80.0-98.0) fL MCH 28.7 (27.0-33.0) pg MCHC 34.2 (31.0-36.0) g/dl RDW 12.0 (11.0-16.0) % Plt Count 305 (160-400) X10*3/uL MPV 8.9 L (9.4-12.4) fL Immature Gran % (Auto) 0.4 (0.0-0.4) % Neut % (Auto) 67.3 (45-73) % Lymph % (Auto) 20.4 (20-40) % [place] % (Auto) 9.6 (2-11) % Eos % (Auto) 1.8 (0-4) % Baso % (Auto) 0.5 (0-2) % Lymph # (Auto) 2.5 (1.2-4.9) X10*3/uL [place] # (Auto) 1.2 (0.1-1.2) X10*3/uL Eos # (Auto) 0.2 (0.0-0.4) X10*3/uL Baso # (Auto) 0.1 (0.0-0.2) X10*3/uL Abs Immat Gran (auto) 0.05 H (0.00-0.03) X10*3/uL Absolute Neuts (auto) 8.3 (2.0-8.3) x10*3/uL Absolute Nucleated RBC 0.000 (0.0-0.012) X10*3/uL Nucleated RBC % (auto) 0.0 (0.0-0.2) /100WBC Sodium 140 (135-145) mmol/L Potassium 5.0 (3.3-5.1) mmol/L Chloride 108 (96-108) mmol/L Carbon Dioxide 26 (22-29) mmol/L Anion Gap 11 L (12-20) BUN 17 H (9-16) mg/dL Creatinine 0.94 (0.5-1.4) mg/dL Estim Creat Clear Calc 116.4 Estimated GFR > 60 Random Glucose 105 (60-115) mg/dL Calcium 9.5 (8.4-10.2) mg/dL Tests considered The following testing was considered but not selected: No threat to airway this is an early abscess no indication for imaging at this time however CT maxillofacial bones with contrast considered. Normal labs. Prescription Management I considered prescription management with: Antibiotic (Augmentin) Chronic Conditions Patient?s care impacted by: Other (Poor dentition) Social Determinants Patient?s care significantly limited by Social Determinants of Health including: Other Social Determinant of Health Critical Care Time Critical Care Time Critical Care Time: No Discharge Plan Discharge Clinical Impression: Dental caries, Dental abscess Patient Disposition: Home, Self-Care Instructions: Dental Abscess (ED) Additional Instructions: Take your medications as prescribed. If you were prescribed antibiotics today, it is important that you take your medication to their entirety, do not skip any doses, do not finish them early. Follow-up with your primary care provider this week. Return to the emergency department with new or worsening symptoms. Such as fevers, chills, chest pain, shortness of breath, nausea, vomiting, dizziness, headache, vision changes, lethargy In case of emergency call 911 Please follow up with a dentist within a week. If you do not have one please call [phone] [facility]. Prescriptions: New amoxicillin-pot clavulanate 875-125 mg tablet 1 tab PO BID 7 Days Qty: 14 0RF prednisone 20 mg tablet 40 mg PO DAILY 5 Days Qty: 10 0RF No Action amoxicillin-pot clavulanate 875-125 mg tablet 1 tab PO Q12H 5 Days Qty: 10 0RF penicillin V potassium 500 mg tablet 500 mg PO BID 10 Days Qty: 20 0RF amoxicillin-pot clavulanate 875-125 mg tablet 1 tab PO BID Qty: 14 0RF amoxicillin-pot clavulanate 875-125 mg tablet 1 tab PO Q12H 10 Days Qty: 20 0RF amoxicillin-pot clavulanate 875-125 mg tablet 1 tab PO BID 10 Days Qty: 20 0RF amoxicillin-pot clavulanate 875-125 mg tablet 1 tab PO BID 7 Days Qty: 14 0RF Referrals: Physician,None [Primary Care Provider, Medical] Stand Alone Forms: Work/School Release Print Language: Indian
[2025-01-10 08:23] VITALS: BP 131/67; PULSE 74; RESP 16; TEMP 36.1; O2SAT 97
== END 2025-01-10 08:24 | disposition home or self-care (01) ==
PROVIDERS: Emergency Provider Emergency Medicine Emergency Medical Services
DX: K02.9 Dental caries, unspecified (principal); K04.7 Periapical abscess without sinus; K08.89 Other specified disorders of teeth and supporting structures
CPT/HCPCS: 36415; 80048; 85025; 99282; 99283